=== PATIENT | female | born 1970 | race Hispanic/Latino ===

== ENCOUNTER 2020-08-28 07:42 | Day surgery (SDC) | payer OTHER ==
[2020-08-28] MEDS ORDERED: ASPIRIN EC 325 MG TAB PO ONE (08:30)
[2020-08-28] MEDS ORDERED: SODIUM CHLORIDE 0.9% 500 ML 500 ML IV SCH (09:00)
[2020-08-28 09:01] LABS: Basophils % (Auto) 0.6 % (0.0-1.8); Eosinophils # (Auto) 0.2 K/mm3 (0.0-0.4); Eosinophils % (Auto) 2.4 % (0.0-4.3); Hematocrit 42.4 % (30.3-42.9); Hemoglobin 14.6 gm/dl (10.1-14.3); Lymphocytes # (Auto) 1.9 K/mm3 (1.2-5.4); Mean Corpuscular HGB Conc 34 % (30-34); Mean Corpuscular Volume 89 fl (79-97); Monocytes # (Auto) 0.6 K/mm3 (0.0-0.8); Monocytes % (Auto) 9.1 % (0.0-7.3); Platelet Count 257 K/mm3 (140-440); Red Blood Count 4.76 M/mm3 (3.65-5.03); Red Cell Distribution Width 12.7 % (13.2-15.2)
[2020-08-28 09:12] LABS: Calcium 8.8 mg/dL (8.4-10.2); INR 0.96 (0.87-1.13)
--- NOTE | 2020-08-28 09:40 | Electrocardiograph Report ---
[facility] Test Date: 2020-08-28 Test Time: 08:48:03 Pat Name: AZAEL ALMODOVAR Department: Room: Gender: F [employer] Steam: HELLEN : 1970 Requested By: JIAN SUTHERLAND Order Number: [id number] Reading MD: Jian Sutherland Measurements Intervals [place] Rate: 59 P: 11 [place]: 119 QRS: -7 QRSD: 101 T: -15 QT: 439 QTc: 435 Interpretive Statements Sinus rhythm Low voltage, precordial leads Nonspecific T abnormalities, inferior leads No previous ECG available for comparison Electronically Signed On 08-28-2020 9:39:52 EDT by Jian Sutherland
[2020-08-28] MEDS ORDERED: HEPARIN 10,000 UNITS/10 ML VIAL ONE (09:56)
[2020-08-28] MEDS ORDERED: VERAPAMIL 5 MG/2 ML INJ ONE (09:56)
[2020-08-28] MEDS ORDERED: fentaNYL 100 MCG/2 ML INJ ONE (09:56)
[2020-08-28] MEDS ORDERED: MIDAZOLAM 2 MG/2 ML INJ ONE (09:56)
[2020-08-28] MEDS ORDERED: LIDOCAINE (2%) 20 MG/1 ML VIAL 20 ML MDV INFILTRATI ONE (09:56)
[2020-08-28] MEDS ORDERED: HEPARIN/NS 5000 UNIT/500ML 1,000 ML IR ONE (09:56)
[2020-08-28] MEDS ORDERED: NITROGLYCERIN SYRINGE 3 ML ONE (09:57)
[2020-08-28] MEDS ORDERED: NITROGLYCERIN 600 MCG/3 ML SYRINGE ART-SHEATH ONE (10:09)
[2020-08-28] MEDS ORDERED: HYDROcodone/ACETAMINOPHEN 5-325 MG TAB PO PRN (11:00)
[2020-08-28] MEDS ORDERED: traMADol 50 MG TAB PO PRN (11:00)
--- NOTE | 2020-08-28 11:28 | Short Stay Summary ---
Short Stay Documentation Date of service: 08/28/20 - History H&P: obtained from office Past Medical History: hypertension, hyperlipidemia Social history: smoking (former) - Allergies and Medications Current Medications: Allergies fluconazole [From Diflucan] Allergy (Verified 08/28/20 08:29) Hives Home Medications Medication Instructions Recorded Confirmed Last Taken Type Atorvastatin [Lipitor Tab] 80 mg PO QHS 08/28/20 08/28/20 08/27/20 History 80 mg FLUoxetine HCL [FLUoxetine] 20 mg PO DAILY 08/28/20 08/28/20 08/27/20 History 20 mg Metoprolol [Lopressor] 25 mg PO DAILY 08/28/20 08/28/20 08/27/20 History 25 mg Potassium Chloride 1 tab PO DAILY 08/28/20 08/28/20 08/27/20 History 10 meq estradioL [Estradiol] 1 mg PO DAILY 08/28/20 08/28/20 08/27/20 History 1 mg hydroCHLOROthiazide 12.5 mg PO DAILY 08/28/20 08/28/20 08/27/20 History [Hydrochlorothiazide] 12.5 Active Medications Hydrocodone Bitart/Acetaminophen (Hydrocodone/Acetaminophen 5-325 Mg Tab) 1 each PO Q4H PRN PRN Reason: Pain, Moderate (4-6) Sodium Chloride (Nacl 0.9% 500 Ml) 500 mls @ 50 mls/hr IV DIRECT [place] Stop: 08/28/20 18:59 Last Admin: 08/28/20 09:32 Dose: 50 mls/hr Documented by: Tramadol HCl (Tramadol 50 Mg Tab) 50 mg PO Q4H PRN PRN Reason: Pain, Mild (1-3) - Physical exam General appearance: no acute distress Integumentary: no rash HEENT: Atraumatic, EOMI Lungs: Clear to auscultation Heart: Normal S1, Normal S2, no Murmur Gastrointestinal: normoactive bowel sounds, no tenderness Extremities: pulses intact, No edema Neurological: Other (A/O x 3) - Brief post op/procedure progress note Date of procedure: 08/28/20 Pre-op diagnosis: Chest Pain Post-op diagnosis: other (Normal coronaries by cath) Procedure: Elective [facility] Surgeon: JIAN SUTHERLAND Estimated blood loss: none Pathology: none - Disposition Condition at discharge: Good Disposition: DC-01 TO HOME OR SELFCARE - Discharge Diagnoses (1) Normal coronary arteries Status: Chronic Short Stay Discharge Plan Activity: advance as tolerated Diet: low cholesterol Wound: per your surgeon's advice Follow up with: PRIMARY CAREMD [Primary Care Provider] - 7 Days
[2020-08-28 14:35] VITALS: BP 106/74
--- NOTE | 2020-08-30 12:09 | Cardiac Catherization Report ---
DATE OF PROCEDURE: 08/28/2020 REFERRING PHYSICIAN: Dr. Rudolph Gonzalez. INDICATIONS FOR PROCEDURE: The patient is a very pleasant 50-year-old female with multiple risk factors, recurrent chest pain, referred here for left heart catheterization. Risks, benefits, potential alternatives for any length prior to obtaining informed consent. 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 Torsten's test in right hand is normal. A 2 mL of 2% lidocaine used to anesthetize the right wrist. A standard 6-Norwegian hydrophilic sheath was used to cannulate the right radial artery via modified Seldinger technique. All exchanges performed to exchange J-tip guidewire. JL3.5 catheter was used to engage to let main. No dampening or ventricularization. Cineangiography performed in multiple projections. JR4 catheter used to cross the aortic valve under fluoroscopic guidance. Left ventriculography performed in 30 [place] and 30 [place] projections via hand injection, catheter flushed. Manual pullback performed with continuous pressure monitoring. Catheter was used to engage the right coronary. No dampening or ventricularization. Cineangiography performed in multiple projections. Next, catheter removed from the body of wire, sheath removed. Manual pressure was used to achieve hemostasis. DATA: Aortic pressure is 117/70, LV pressure is 117. LVEDP of 20 mmHg. Left ventriculography reveals normal systolic performance with estimated ejection fraction 55-60%. No evidence of aortic stenosis. CORONARY ANATOMY: It is a right dominant system. Left main is short. No significant disease, bifurcates into left anterior descending and left circumflex. Left circumflex is a moderate-sized vessel, courses AV groove. No significant disease noted. Large OM trunk diminutive into the AV groove circumflex. LAD is a moderate-sized vessel, courses the anterior intergroove, wraps around the apex. No significant disease in the LAD or diagonal. Scattered luminal irregularities are identified. Right coronary is a large vessel, courses in the AV groove, distally bifurcates into the posterior descending and posterolateral branches. No discrete stenoses are noted. I directly supervised the administration of moderate sedation with fentanyl and Versed from 9:55 a.m. to 10:18 a.m. CONCLUSIONS: 1. No evidence of significant epicardial coronary artery disease in this right dominant system. 2. Normal left ventricular systolic performance. Estimated ejection fraction of 55-60%. 3. No evidence of aortic stenosis. 4. High normal LVEDP. RECOMMENDATIONS: The patient tolerated the procedure well. No immediate complications identified. Standard radial care. Results of the procedure were explained at length to the patient and family via telephone. All questions were addressed. Followup with Dr. Rudolph Gonzalez in the office. Standard radial care. TID: [id number] RECEIPT: [id number] SBM/SAT
== END 2020-08-28 07:43 | disposition home or self-care (01) ==
LOC: CATHLABREC 07:42
PROVIDERS: ATTEND Internal Medicine
DX: R07.89 Other chest pain (principal); E78.00 Pure hypercholesterolemia, unspecified; I10 Essential (primary) hypertension; J45.909 Unspecified asthma, uncomplicated; Z72.89 Other problems related to lifestyle; Z79.899 Other long term (current) drug therapy; Z88.8 Allergy status to other drugs, medicaments and biological substances; Z90.710 Acquired absence of both cervix and uterus; Z82.5 Family history of asthma and other chronic lower respiratory diseases; Z82.49 Family history of ischemic heart disease and other diseases of the circulatory system
CPT/HCPCS: 36415; 80048; 85025; 85610; 85730; 93005; 93458; 99156; 99157; C1894; J1644; J2250; J3010; J7040; Q9967